=== PATIENT | male | born 2000 | race Caucasian/White ===

== ENCOUNTER 2023-08-11 15:45 | Emergency (ER) | payer BC ==
[~2023-08-11] VITALS: Ht 172.7 cm; Wt 78.5 kg
[2023-08-11 15:53] VITALS: BP 129/70; PULSE 71; RESP 15; TEMP 97.8; O2SAT 100
[2023-08-11] MEDS ORDERED: ACETAMINOPHEN 325 MG TAB PO ONE (16:20)
[2023-08-11] MEDS ORDERED: ONDANSETRON 4 MG ODT PO ONE (16:20)
[2023-08-11 16:51] LABS: BASOPHILS # (AUTO) 0.1 K/uL (0.00-0.22); BASOPHILS % (AUTO) 0.7 % (0.0-2.0); EOSINOPHILS # (AUTO) 0.2 K/uL (0-0.4); EOSINOPHILS % (AUTO) 2.4 % (0.0-4.0); HEMATOCRIT 45.4 % (36-52); HEMOGLOBIN 15.5 g/dL (12.0-18.0); LYMPHOCYTES % (AUTO) 38.9 % (20.5-51.1); MEAN CORPUSCULAR HEMOGLOBIN 29 pg (27-31); MEAN CORPUSCULAR HGB CONC 34 g/dL (33-37); MEAN CORPUSCULAR VOLUME 85.6 fL (80-94); MONOCYTES # (AUTO) 0.7 K/uL (0.8-1.0); MONOCYTES % (AUTO) 8.6 % (1.7-9.3); NEUTROPHILS # (AUTO) 3.8 K/uL (1.8-7.7); NEUTROPHILS % (AUTO) 49.4 % (42.2-75.2); PLATELET COUNT (AUTO) 244 K/uL (140-450); RED BLOOD CELL COUNT(AUTO) 5.31 MIL/uL (4.20-6.10); RED CELL DISTRIBUTION WIDTH 14.5 % (11.6-13.7); WHITE BLOOD COUNT (AUTO) 7.8 K/uL (4.8-10.8)
[2023-08-11 17:06] LABS: ALBUMIN 4.2 g/dL (3.4-5.0); CALCIUM 8.9 mg/dL (8.5-10.1); CARBON DIOXIDE 28.7 mmol/L (21-32); POTASSIUM 3.7 mmol/L (3.5-5.1); TOTAL PROTEIN, SERUM 7.9 g/dL (6.4-8.2)
[2023-08-11] MEDS ORDERED: BEN10 PO (17:29)
[2023-08-11] MEDS ORDERED: ACET-10509 PO (17:29)
[2023-08-11] MEDS ORDERED: ONDA-188 PO (17:29)
[2023-08-11] MEDS ORDERED: IMO2 PO (17:29)
== END 2023-08-11 18:03 | disposition home or self-care (01) ==
LOC: MED 15:45
DX: R10.30 Lower abdominal pain, unspecified (principal); Z79.899 Other long term (current) drug therapy
CPT/HCPCS: 36415; 80053; 83690; 85025; 99284